=== PATIENT | male | born 1980 | race Caucasian/White ===

== ENCOUNTER 2020-07-06 06:21 | Emergency (ER) | payer MEDICAID ==
[~2020-07-06] VITALS: Ht 172.7 cm; Wt 113.9 kg
[~2020-07-06 06:21] MED LIST: CHANTIX0.5 MG PO; CYCLOBENZAPRINE10 MG PO; HYDROCODON-ACE1 EAC8 PO; HYDROMORPHONE HC4 MG PO; MELOXICAM15 MG PO; NORCO 10-325 T1 EACH PO; NORCO 5-325 TA1 EACH PO; OXYCODONE HCL5 MG PO; OXYCONTIN10 MG PO; SERTRALINE HCL50 MG PO; ZOLOFT50 MG PO
--- OUTSIDE RECORDS SUMMARY | 2020-07-06 06:24 | XMS ---
PreManage Notification: LISA MONAE [employer] Events No recent Security Events currently on file CRITERIA MET - PDM CARE PROVIDERS [facility]: [facility] 11/24/2018-[facility] PHONE: [phone] MAGALI MICHELLE [facility] GILBERTO PHONE: Unknown JOHN SOTELO [facility] Current PHONE: [phone] MADAN CAREY [employer] [facility] PHONE: [phone] Madan Carey [employer] [facility] PHONE: Unknown Deon has no Care Guidelines for this patient. EMiguel VISIT COUNT (12 MO.) [address] [facility] TOTAL 1 NOTE: Visits indicate total known visits. ED/UCC VISIT TRACKING (12 MO.) 07/06/2020 06:22 [facility] [place] TYPE: Emergency COMPLAINT: - DENTAL PROBLEM INPATIENT VISIT TRACKING (12 MO.) No inpatient visits to display in this time frame [email or web address]
[2020-07-06] MEDS ORDERED: SUBOXONE 8 MG-1 EAC1 SL (06:33)
[2020-07-06] MEDS ORDERED: PENICILLIN V P500 MG PO (06:52)
== END 2020-07-06 07:08 | disposition home or self-care (01) ==
LOC: ED 06:21
DX: K02.9 Dental caries, unspecified (principal); Z87.891 Personal history of nicotine dependence; Z88.8 Allergy status to other drugs, medicaments and biological substances; Z88.5 Allergy status to narcotic agent; Z79.899 Other long term (current) drug therapy
CPT/HCPCS: 99282